=== PATIENT | male | born 1955 | race Caucasian/White ===

== ENCOUNTER → 2018-11-17 15:39 | Outpatient (CLI) | payer OTHER, SELFPAY ==
--- NOTE | 2018-11-17 | DI.RAD.S_ITS ---
PROCEDURE: XR WRIST RT MIN 3V INDICATIONS: RIGHT WRIST PAIN TECHNIQUE: 3 views of the wrist were acquired. COMPARISON: None. FINDINGS: Bones: No fractures or dislocations. No suspicious bony lesions. First CMC and triscaphe joint degeneration diffuse carpal subchondral sclerosis and spurring. Marginal lucencies projecting at the PIP joints of the ring and index finger. Mild chronic deformity of the fifth carpal. Soft tissues: Small ossicle projects along the dorsal aspect of the carpus, probably chronic although technically age-indeterminate triquetral fracture fragment. IMPRESSION: No acute fracture. Chronic very mild deformity of the fifth metacarpal, presumably from prior remote trauma. Diffuse degenerative changes as above. Probably chronic fracture triquetral fracture fragment, although recommend correlation of point tenderness. Dictated by: Aristides Wills M.D. on 11/17/2018 at 17:03 Approved by: Aristides Wills M.D. on 11/17/2018 at 17:12
== END ==
PROVIDERS: Visit Provider Family Medicine
DX: M25.531 Pain in right wrist (principal); M18.11 Unilateral primary osteoarthritis of first carpometacarpal joint, right hand; M19.031 Primary osteoarthritis, right wrist
CPT/HCPCS: 73110